=== PATIENT | male | born 1990 | race American Indian/Alaskan Native ===

== ENCOUNTER 2025-04-04 09:55 | Emergency (ER) | payer MEDICAID, SELFPAY ==
[2025-04-04 09:59] VITALS: BP 152/109; PULSE 104; PULSE 107; RESP 15; RESP 18; TEMP 35.6; O2SAT 100; O2SAT 95; BMI 25.4
--- NOTE | 2025-04-04 09:59 | PC.NURSE ---
PT ARRIVED VIA EMS; PER EMS REPORT, HX OF ALCOHOL ETOH AND XANAX USE, SEIZURES; AT HOME, FAMILY SAW PT'S EYES ROLLED BACK AND GAGGING SO THEY CALLED 911. PT WAS ALREADY ON THE FLOOR. WHEN WE GOT THERE, GCS 12; PT STATING, HE TOOK DAD'S PILLS. PT HAS HX OF ETOH & XANAX ABUSE AND SEIZURE S/P SUBSTANCE USE. UPON ARRIVAL, PT GCS 14; ABLE TO FOLLOW SIMPLE COMMANDS BUT CONFUSED AND SLURRING HIS WORDS; PT'S BREATH SMELLED OF ALCOHOL AND PT REPEATEDLY ASKED THE SAME QUESTIONS.
--- NOTE | 2025-04-04 09:59 | EKG_ITS ---
[facility] Test Date: 2025-04-04 Pat Name: DEANDRE STRICKLAND Department: Room: - Gender: Male Activity Specialist: : 1990 Requested By: Maricruz Zhou Order Number: [id number] Reading MD: Maricruz Zhou Measurements Intervals [place] Rate: 101 P: 53 CA: 136 QRS: 4 QRSD: 102 T: 48 QT: 358 QTc: 465 Interpretive Statements SINUS TACHYCARDIA ABNORMAL RHYTHM ECG No previous ECG available for comparison /store/S0/[id number]/[id number].pdf
--- NOTE | 2025-04-04 10:12 | EDNOTE_ITS ---
ED Overdose RME/HPI General Chief Complaint: Overdose Stated Complaint: OVERDOSE Time Seen by Provider: 04/04/25 09:59 Arrival date/time: 04/04/25 09:55 RME / HPI RME / HPI Narrative: DR. RAMSEY MAIN ED EVALUATION: 34 year old male with past medical history significant for alcohol seizures, alcoholism, and drug use presents to the Emergency Department [facility] with complaint of overdose, Xanax 10 pills and alcohol. Per EMS, family called after they found the patient rolling his eyes back and they were concerned for vomiting and aspiration since he had been drinking a lot. Blood glucose per EMS was 105. Related Data Allergies Allergy/AdvReac Type Severity Reaction Status Date / Time No Known Allergies Allergy Verified 04/04/25 10:28 Review of Systems Review of Systems Systems Reviewed: All systems reviewed, normal except as documented Past Medical History Past Medical History Comments PMH COMMENT: alcohol seizures, alcoholism, and drug use ED Exam Narrative Physical exam: GENERAL APPEARANCE: well-developed, well-nourished, no acute distress, drunk and intoxicated VITALS: All vitals were reviewed and the pulse ox is 100% on room air, which is normal according to my interpretation. HEENT: Normocephalic, atraumatic; pupils equal, round, reactive to light; EOMI; mucous membranes pink, moist; oropharynx clear NECK: Supple LUNGS: CTABL; no wheezes, no rales, no rhonchi HEART: Regular rate, regular rhythm; normal S1, S2; no murmurs ABDOMEN: non distended; normal BS; soft, no tenderness, no guarding, no rebound; no masses, no organomegaly, no hernia BACK: no CVA tenderness EXTREMITIES: atraumatic; no edema NEUROLOGIC: intoxicated, cranial nerves II-XII grossly intact; no focal sensory or motor deficits PSYCHIATRIC: appropriate mood and affect SKIN: warm, dry, normal color; no rashes Course Quality Measures none Orders Category Date Time Status EKG (ED ONLY) *Do not use* NOW Care 04/04/25 09:59 Completed In and Out Catheter X1 Care 04/04/25 10:28 Completed EKG (ED Only) Stat Exams 04/04/25 09:59 Draft Acetaminophen Stat Lab 04/04/25 10:07 Completed Alcohol, Blood Medical Stat Lab 04/04/25 10:07 Completed CBC Stat Lab 04/04/25 10:07 Completed Chlamydia/GC/TV - PCR Stat Lab 04/04/25 12:23 Completed Comprehensive Metabolic Panel Stat Lab 04/04/25 10:07 Completed Drug Screen,Urine Stat Lab 04/04/25 10:31 Completed Magnesium Stat Lab 04/04/25 10:07 Completed Salicylate Stat Lab 04/04/25 10:07 Completed Troponin I Stat Lab 04/04/25 10:07 Completed UA, C/S IF [Urinalysis, C/S if Indicated] Stat Lab 04/04/25 10:31 Completed Urine Culture Stat Lab 04/04/25 10:31 Received Acetaminophen Tab [Tylenol ES Tab] Med 04/04/25 12:34 Discontinued 1,000 mg PO X1 ONE LORazepam [Ativan Inj] Med 04/04/25 15:59 Discontinued 1 mg IVP X1 ONE LORazepam [Ativan Inj] Med 04/04/25 16:36 Discontinued 1 mg IVP X1 ONE Reevaluation(s) Reevaluation #1: Patient was trying to get up and sister at bedside antagonizing him. The sister left to get some food. Time: 12:25 Reevaluation #2: I talked to the patient and he states that his friend 2 days ago from an overdose and also 2 uncles in the last year as well; patient states he is having trouble with these passings and that is why he has been drinking and using drugs. Time: 17:32 Vital Signs Vital signs: Vital Signs Temperature 96.0 F L 04/04/25 09:59 Pulse Rate 104 H 04/04/25 09:59 Respiratory Rate 15 04/04/25 09:59 Blood Pressure 152/109 H 04/04/25 09:59 Pulse Oximetry (%) 100 04/04/25 09:59 Oxygen Delivery Method Room Air 04/04/25 09:59 Overdose MDM Narrative MDM Narrative:: I, Eugenia Rosas, am scribing for and in the presence of Dr. Ramsey. Patient data External records reviewed:: EMS form Clinical information provided by:: patient and EMS Social determinants that could affect healthcare access:: alcohol use Patient has the following chronic illnesses:: Alcohol seizures, alcoholism, and drug use. How is presenting disease/condition affected by chronic disease/condition?: exacerbated by Evaluation data The following diagnostics were reviewed and interpreted by me:: lab results and EKG tracing(s) Lab and/or radiology exams considered but not ordered:: none Interpretation Summary: EKG#1: EKG at 1016 hours. Interpreted by me: sinus tachycardia, rate 101, mild baseline wander Medications / Prescriptions Medications or Prescriptions considered but not ordered:: none Medication administrations:: Medication Administration History Discontinued Medications Acetaminophen (Acetaminophen 500 Mg Tablet) 1,000 mg PO X1 ONE Stop: 04/04/25 12:35 Last Admin: 04/04/25 14:55 Dose: Not Given Documented By: GM Non-Admin Reason: Patient Refused Lorazepam (Lorazepam 2 Mg/Ml Vial) 1 mg IVP X1 ONE Stop: 04/04/25 16:00 Last Admin: 04/04/25 16:19 Dose: 1 mg Documented By: GM Lorazepam (Lorazepam 2 Mg/Ml Vial) 1 mg IVP X1 ONE Stop: 04/04/25 16:37 Last Admin: 04/04/25 16:40 Dose: 1 mg Documented By: SM see above if any Consultations Consultation(s) initiated? (list below): No Diagnosis Overdose Differential Diagnosis: poisoning by opiate or related narcotic, drug overdose and accidental drug ingestion Most likely diagnosis given after review of the tests above:: Alcohol intoxication Cocaine abuse Marijuana abuse Behavior disturbance Admission Indicated Admission indicated?: not indicated Admission Request Was there a request for admission?: No Disposition Plan Disposition Plan: Discharge Discharge Attestation Discharge Attestation: The patient and all family members were given an opportunity to ask questions and understood the discharge instructions. Discharge instructions specifically effects, indications for sooner follow up or return to the emergency department, and the expected course of current diagnosis. Patient condition: Stable Discharge Plan Plan Patient Disposition: HOME (Self Care) Prescriptions/Referrals Referrals: No Primary/Family,Physician [Primary Care Provider] - In 1 week Problem List Clinical Impression: Alcohol intoxication, Cocaine abuse, Marijuana abuse, Behavior disturbance Patient/Caregiver Discharge Instructions Education Materials: Social Drinking vs Problem Drinking, ED Drug Abuse, ED Alcohol Intoxication Print Language: Citizen Of [place] Stand Alone Forms: [facility]a Award Info., Patient Portal Info Letter
[2025-04-04 10:13] LABS: Basophils # (Auto) 0.1 Thou/mm3 (0.0-0.2); Basophils % (Auto) 1 % (0-2.5); Eosinophils % (Auto) 0 % (0-10); Hematocrit 35.6 % (41.0-53.0); Hemoglobin 11.2 g/dL (13.5-16.0); Immature Granulocytes % (Auto) 1 % (0-0); Immature Granulocytes Auto 0.08 Thou/mm3 (0.00-0.00); Lymphocytes # (Auto) 2.7 Thou/mm3 (1.0-4.8); Lymphocytes % (Auto) 20 % (10-50); Mean Corpuscular HGB Conc 31.5 g/dl (31.0-37.0); Mean Corpuscular Hemoglobin 21.7 pg (25.0-35.0); Mean Corpuscular Volume 69 fL (80-100); Monocytes # (Auto) 1.3 Thou/mm3 (0.0-0.8); Monocytes % (Auto) 10 % (0-12); Neutrophils # (Auto) 9.6 Thou/mm3 (1.8-7.7); Neutrophils % (Auto) 69 % (37-80); Nucleated Red Blood Cell % 0 /100 WBC (0); Platelet Count 453 Thou/mm3 (140-440); RDW Standard Deviation 42.7 fL (35.1-43.9); Red Blood Count 5.17 Miln/mm3 (4.50-5.90); White Blood Count 13.9 Thou/mm3 (3.8-10.6)
[2025-04-04 10:48] LABS: Alanine Aminotransferase 14 U/L (10-49); Albumin, Serum 4.8 gm/dL (3.5-5.0); Albumin/Globulin Ratio 1.5 (1.2-2.2); Alcohol, Blood Medical 359.3 mg/dL (0-10.0); Alkaline Phosphatase 118 U/L (46-116); Anion Gap 12 (7-16); Aspartate Amino Transferase 24 U/L (0-34); BUN/Creatinine Ratio 10 Ratio (12-20); Bilirubin,Total 0.4 mg/dL (0.3-1.2); Blood Urea Nitrogen 10 mg/dL (9-23); Calcium 8.4 mg/dL (8.3-10.6); Calcium (Corrected) 8.4 mg/dL (8.5-10.1); Carbon Dioxide 29.6 mMol/L (20.0-31.0); Chloride 103 mMol/L (98-107); Estimated Creatinine Clearance 106.5 mL/min (>60); Globulin 3.2 gm/dL (2.3-3.5); Glucose 112 mg/dL (74-106); Magnesium 2.2 mg/dL (1.6-2.6); Osmolality,Calculated 288 (275-295); Potassium 3.6 mMol/L (3.4-5.1); Sodium 145 mMol/L (136-145); Troponin I < 0.020 ng/mL (0.0-0.045); eGFR > 60 See Note
[2025-04-04 10:57] LABS: Collection Type, Urine Clean Catch
[2025-04-04 11:18] LABS: Bilirubin,Urine Negative (Negative); Blood,Urine Negative (Negative); Clarity,Urine Clear (Clear/Hazy); Color,Urine Lt-Yellow (Lt Yel-Yel); Glucose, Urine Negative (Negative); Ketones,Urine Negative (Negative); Leukocyte Esterase,Urine Negative (Negative); Nitrite,Urine Negative (Negative); PH,Urine 5.5 (5.0-7.0); Protein,Urine Negative (Neg - Trace); RBC,Urine 6 /hpf (0-3); Specific Gravity,Urine 1.017 (1.001-1.035); Squamous Epithelial Cell,Urine 1 /hpf (0-5); Urobilinogen,Urine Negative mg/dL (0.0-1.0); WBC,Urine 46 /hpf (0-5)
[2025-04-04 11:19] LABS: Culture Indicated,Urine Yes
[2025-04-04 11:24] LABS: Amphetamine/Methamp Scrn,U Negative (Negative); Barbiturate Screen,Urine Negative (Negative); Benzodiazepines Screen,Urine Positive (Negative); Benzoylecgonine Screen, Ur Positive (Negative); Fentanyl Screen,Urine Negative (Negative); Opiate Screen,Urine Negative (Negative); THC Screen,Urine Positive (Negative)
[2025-04-04 12:05] LABS: Acetaminophen < 2.0 mcg/mL (10.0-20.0); Salicylate < 3.0 mg/dL
[2025-04-04 12:28] VITALS: BP 156/102; PULSE 98; RESP 19; TEMP 36.9; O2SAT 99
[2025-04-04 14:00] VITALS: BP 115/83; PULSE 72; RESP 16; TEMP 37.1; O2SAT 96
[2025-04-04 16:11] VITALS: BP 147/109; PULSE 92; RESP 14; TEMP 36.4; O2SAT 99
[2025-04-04] MEDS: LORazepam 2 MG/ML VIAL 1 MG IVP ×2 (16:19→16:40)
[2025-04-04 16:43] LABS: Chlamydia trachomatis PCR Negative (Not Detect); Neisseria Gonorrhoeae DNA PCR Negative (Not Detect); Trichomonas Negative (Negative)
[2025-04-04 17:46] VITALS: BP 165/105; PULSE 99; RESP 20; TEMP 37; O2SAT 99
== END 2025-04-04 17:48 | disposition home or self-care (01) ==
PROVIDERS: Emergency Provider Emergency Medicine
DX: F10.229 Alcohol dependence with intoxication, unspecified (principal); F12.10 Cannabis abuse, uncomplicated; F14.10 Cocaine abuse, uncomplicated; Y90.9 Presence of alcohol in blood, level not specified
CPT/HCPCS: 51701; 36415; 80053; 80307; 80320; 80329; 81001; 83735; 84484; 85025; 87086; 87491; 87591; 87661; 96127; 96374; 96376; 99284; J2060; G0480